=== PATIENT | female | born 1930 | race Two or more races ===

== ENCOUNTER → 2017-06-27 18:38 | Outpatient (CLI) | payer OTHER ==
[~2017-06-27 18:38] MED LIST: ACETAMINOPHEN-1 EAC2 PO; ANTIVERT25 M1 PO; BEE WITH C1 CAP PO; CALCITRIOL0.5 MCG PO; DICLOFENAC SODI50 MG PO; KENALOG-1010 MG/1 ML IJ; MEDROLPACK PO; MOBIC7.5 M1 PO; NEURONTIN300 MG PO; NORFLEX100MG PO; PLAVIX 75MG PO; SINGULAIR10 MG; SUPPORT-5001 EACH; SYMBICORT 16010.2 GM; SYNTHROID88 MCG; TYLENOL-CODEINE1 TA1 PO; ZoCOR 20MG TABLET PO
== END | disposition home or self-care (01) ==
LOC: RAD 18:38
DX: M99.03 Segmental and somatic dysfunction of lumbar region (principal); M54.16 Radiculopathy, lumbar region; M99.02 Segmental and somatic dysfunction of thoracic region

== ENCOUNTER 2017-10-30 04:02 | Emergency (ER) | payer OTHER ==
[~2017-10-30] VITALS: Ht 147.3 cm; Wt 63.5 kg
[~2017-10-30 04:02] MED LIST changes: +GABAPENTIN100 MG PO
[2017-10-30] MEDS ORDERED: MEDROL4 MG ×2 (04:12→04:13)
[2017-10-30] MEDS ORDERED: FLEET BISA10 MG/30 M RECTAL (05:29)
[2017-10-30] MEDS ORDERED: KRISTALOSE20 GM PO (05:29)
== END 2017-10-30 06:03 | disposition home or self-care (01) ==
LOC: ER 04:02
DX: K56.41 Fecal impaction (principal)

== ENCOUNTER 2017-11-05 08:26 | Outpatient (CLI) | payer OTHER ==
[~2017-11-05 08:26] MED LIST changes: +FLEET BISA10 MG/30 M RECTAL; +KRISTALOSE20 GM PO; +MEDROL4 MG
== END 2017-11-05 08:59 | disposition home or self-care (01) ==
LOC: LAB 08:26
DX: D46.Z Other myelodysplastic syndromes (principal); D51.3 Other dietary vitamin B12 deficiency anemia; D69.59 Other secondary thrombocytopenia; D70.8 Other neutropenia; D50.0 Iron deficiency anemia secondary to blood loss (chronic); K57.90 Diverticulosis of intestine, part unspecified, without perforation or abscess without bleeding; Z80.0 Family history of malignant neoplasm of digestive organs; E53.8 Deficiency of other specified B group vitamins; E61.1 Iron deficiency; E61.8 Deficiency of other specified nutrient elements; E50.8 Other manifestations of vitamin A deficiency; I10 Essential (primary) hypertension; E03.8 Other specified hypothyroidism; D69.49 Other primary thrombocytopenia

== ENCOUNTER 2017-11-05 09:41 | Outpatient (CLI) | payer OTHER | END 2017-11-05 09:44 | disposition home or self-care (01) | LOC: MAMO-SONO 09:41 | DX: Z12.31 Encounter for screening mammogram for malignant neoplasm of breast (principal); Z87.898 Personal history of other specified conditions; D51.3 Other dietary vitamin B12 deficiency anemia; D69.59 Other secondary thrombocytopenia; D70.8 Other neutropenia; D50.0 Iron deficiency anemia secondary to blood loss (chronic); K57.90 Diverticulosis of intestine, part unspecified, without perforation or abscess without bleeding; Z80.0 Family history of malignant neoplasm of digestive organs; D46.Z Other myelodysplastic syndromes; E53.8 Deficiency of other specified B group vitamins; E61.1 Iron deficiency; E61.8 Deficiency of other specified nutrient elements; N63.10 Unspecified lump in the right breast, unspecified quadrant; N63.20 Unspecified lump in the left breast, unspecified quadrant ==

== ENCOUNTER → 2017-11-20 | Emergency (ER) | payer OTHER ==
[~2017-11-20] VITALS: Ht 147.3 cm; Wt 63.5 kg
[~2017-11-20] MED LIST changes: +ASPIR 8181 MG; +SINGULAIR4 M1
== END | disposition expired ==
LOC: ER 16:25 → CPU-OBS 16:29
DX: I46.8 Cardiac arrest due to other underlying condition (principal); I21.29 ST elevation (STEMI) myocardial infarction involving other sites; I10 Essential (primary) hypertension; R07.89 Other chest pain; J45.998 Other asthma; E03.8 Other specified hypothyroidism